=== PATIENT | female | born 1980 | race Caucasian/White ===

== ENCOUNTER 2017-04-06 14:42 | Emergency (ER) | payer BC ==
[2017-04-06 15:04] VITALS: BP 156/86
--- NOTE | 2017-04-06 15:13 | UC ---
Respiratory Complaint HPI - HPI Summary HPI Summary: 37 year old female presents with cough, post nasal drip and chills. - History of Current Complaint Chief Complaint: UCRespiratory Stated Complaint: URI Time Seen by Provider: 04/06/17 15:08 Hx Obtained From: Patient Hx Last Menstrual Period: on Bc Onset/Duration: Sudden Onset Severity Initially: Moderate Severity Currently: Moderate Pain Scale Used: 0-10 Numeric - Allergies/Home Medications Allergies/Adverse Reactions: Allergies Allergy/AdvReac Type Severity Reaction Status Date / Time Amoxicillin Allergy Mild Unknown Verified 03/04/15 09:57 Reaction Details Codeine Allergy GI Upset Verified 04/06/17 15:05 Penicillins [PCN] Allergy Unknown Verified 03/04/15 09:57 Reaction Details PMH/Surg Hx/FS Hx/Imm Hx Previously Healthy: Yes Other History Of: Negative For: Anticoagulant Therapy - Surgical History Surgical History: Yes Surgery Procedure, Year, and Place: oral surgery. kidney stone removal - Family History Known Family History: Positive: Hypertension, Diabetes - Social History Alcohol Use: Occasionally Substance Use Type: None Smoking Status (MU): Light Every Day Tobacco Smoker Amount Used/How Often: <1/2 PPD X 17-19 YEARS Have You Smoked in the Last Year: Yes Household Exposure Type: Cigarettes Review of Systems Constitutional: Negative Skin: Negative Eyes: Negative ENT: Sore Throat, Nasal Discharge, Sinus Congestion, Sinus Pain/Tenderness Respiratory: Cough Cardiovascular: Negative Gastrointestinal: Negative Genitourinary: Negative Motor: Negative Neurovascular: Negative Musculoskeletal: Negative Neurological: Negative Psychological: Negative All Other Systems Reviewed And Are Negative: Yes Physical Exam Triage Information Reviewed: Yes Vital Signs: Initial Vital Signs Temp 36.5 C 04/06/17 14:59 Pulse 91 04/06/17 14:59 Resp 16 04/06/17 14:59 BP 156/86 04/06/17 14:59 Pulse Ox 100 04/06/17 14:59 Eye Exam: Normal ENT: Positive: Pharyngeal erythema, Nasal congestion, Nasal drainage Dental Exam: Normal Neck exam: Normal Neck: Positive: 1 Respiratory Exam: Normal Cardiovascular Exam: Normal Abdominal Exam: Normal Musculoskeletal Exam: Normal Neurological Exam: Normal Psychological Exam: Normal Skin Exam: Normal UC Diagnostic Evaluation - Laboratory O2 Sat by Pulse Oximetry: 100 Respiratory Course/Dx - Differential Dx/Diagnosis Provider Diagnoses: sinus congestion. sore throat. cough Discharge - Discharge Plan Condition: Stable Disposition: HOME Prescriptions: Azithromyxin BA (NF) [Z-Ba (Zithromax) 250 mg tabs #6] 2 tab PO .TODAY, THEN 1 DAILY #6 tab LoraTADine TAB(NF) [Claritin 10 MG TAB(NF)] 10 mg PO DAILY #30 tab Promethazine-Dm [Promethazine/Dextromethor 6.25-15 mg/5Ml] 1 syp PO Q8H PRN # 120 ml PRN Reason: Cough Patient Education Materials: Allergic Rhinitis (ED) Referrals: Scooby Markham MD [Primary Care Provider] -
== END 2017-04-06 15:20 | disposition home or self-care (01) ==
LOC: UCEAST 14:42
DX: R09.81 Nasal congestion (principal); J02.9 Acute pharyngitis, unspecified; R05 Cough
CPT/HCPCS: 99211; G0463